=== PATIENT | female | born 1955 | race Caucasian/White ===

== ENCOUNTER 2025-02-16 06:26 | Day surgery (SDC) | payer BC, MEDICARE ==
[2025-02-16] MEDS ORDERED: Propofol 200 MG/20 ML SDV ONE (06:59)
[2025-02-16] MEDS ORDERED: Midazolam 1 MG/ML 2 ML SDV ONE (06:59)
[2025-02-16] MEDS ORDERED: fentaNYL 50 MCG/ML SDV ONE (06:59)
[2025-02-16] MEDS: Lactated Ringers 1,000 ML IV SCH (07:11)
[2025-02-16 09:11] VITALS: BP 135/84; PULSE 72
== END 2025-02-16 09:26 | disposition home or self-care (01) ==
LOC: JP.SDS 06:26
PROVIDERS: ATTEND Surgery
DX: Z12.11 Encounter for screening for malignant neoplasm of colon (principal); K57.30 Diverticulosis of large intestine without perforation or abscess without bleeding; Z87.891 Personal history of nicotine dependence
CPT/HCPCS: G0121; J2250; J2704; J3010; J7120